=== PATIENT | female | born 1970 | race Caucasian/White ===

== ENCOUNTER 2016-11-29 07:53 | Emergency (ER) | payer OTHER ==
[~2016-11-29] VITALS: Ht 154.9 cm; Wt 74.8 kg
[~2016-11-29 07:53] MED LIST: NORCO 5-325 TA1 EACH PO
== END 2016-11-29 08:04 | disposition home or self-care (01) ==
LOC: ED 07:53
DX: Z00.8 Encounter for other general examination (principal)

== ENCOUNTER 2017-08-11 07:14 | Emergency (ER) | payer BC, OTHER ==
[~2017-08-11] VITALS: Ht 154.9 cm; Wt 74.8 kg
--- OUTSIDE RECORDS SUMMARY | ~2017-08-11 | XMS ---
Demographics + + + | Address | [address] | | | [address] | | | [place] [address] | + + + | Preferred Language | Unknown | + + + | Marital Status | Unknown | + + + | Quaker Affiliation | Unknown | + + + | Race | Unknown | + + + | Ethnic Group | Unknown | + + + Author + + + | Author | [facility] | + + + | Organization | [facility] | + + + | Address | [address] | | | [place] [address] | + + + | Phone | [phone] | + + + Care Team Providers + + + + | Care Superintendent [employer] Name | Role | Phone | + + + + Unavailable | Unavailable | + + + + PROBLEMS +---------+ + + +--------+ + + | Type | Condition | ICD9-CM | [id number] | Onset | Condition | SNOMED | | | | Code | Code | Dates | Status | Code | +---------+ + + +--------+ + + | Problem | Thoracic | 724.1 | | | Active | [id number] | | | spine pain | | | | | | +---------+ + + +--------+ + + | Problem | ROM (right | H66.91 | | | Active | 86667412 | | | otitis | | | | | | | | media) | | | | | | +---------+ + + +--------+ + + | Problem | Brachial | 723.4 | | | Active | 31449840 | | | neuritis | | | | | | | | or | | | | | | | | radiculiti | | | | | | | | s NOS | | | | | | +---------+ + + +--------+ + + | Problem | Genital | | A63.0 | | Active | 597433591 | | | warts | | | | | | +---------+ + + +--------+ + + | Problem | History of | Z85.41 | | | Active | 932270603 | | | cervical | | | | | | | | cancer | | | | | | +---------+ + + +--------+ + + | Problem | Pyelonephr | | N12 | | Active | 08895457 | | | itis | | | | | | +---------+ + + +--------+ + + | Problem | Strep | J02.0 | | | Active | 78806958 | | | pharyngiti | | | | | | | | s | | | | | | +---------+ + + +--------+ + + | Problem | History of | Z87.891 | | | Active | 3949406983 | | | tobacco | | | | | 103 | | | abuse | | | | | | +---------+ + + +--------+ + + | Problem | Right | R10.9 | | | Active | 078510700 | | | flank pain | | | | | | +---------+ + + +--------+ + + | Problem | Fibromyalg | 729.1 | | | Active | 661757632 | | | ia muscle | | | | | | | | pain | | | | | | +---------+ + + +--------+ + + | Problem | Well woman | V72.31 | | | Active | 887389137 | | | exam with | | | | | | | | routine | | | | | | | | gynecologi | | | | | | | | lanette exam | | | | | | +---------+ + + +--------+ + + | Problem | Hyperlipid | 272.4 | | | Active | 07540271 | | | emia | | | | | | +---------+ + + +--------+ + + | Problem | Breast | 611.72 | | | Active | 15048532 | | | lump or | | | | | | | | mass | | | | | | +---------+ + + +--------+ + + | Problem | Pain of | 729.5 | | | Active | 59031247 | | | right heel | | | | | | +---------+ + + +--------+ + + | Problem | Carpal | 354.0 | | | Active | [id number] | | | tunnel | | | | | [address] | | | syndrome | | | | | | | | of right | | | | | | | | wrist | | | | | | +---------+ + + +--------+ + + ALLERGIES + + + + +--------+ | Substance | Reaction | Event Type | Date | Status | + + + + +--------+ | Latex | hives | Drug Allergy | Dec, | Active | + + + + +--------+ | Penicillin | hives | Drug Allergy | Dec, | Active | + + + + +--------+ | Aspirin | GI upset | Drug Allergy | Dec, | Active | + + + + +--------+ | latex | Unknown | Non Drug | Dec, | Active | | | | Allergy | | | + + + + +--------+ | iodine | Unknown | Non Drug | Dec, | Active | | | | Allergy | | | + + + + +--------+ | fish | Unknown | Non Drug | Dec, | Active | | | | Allergy | | | + + + + +--------+ | shell fish | Unknown | Non Drug | Dec, | Active | | | | Allergy | | | + + + + +--------+ SOCIAL HISTORY No smoking Hx information available PLAN OF CARE + +---------+ | Activity | Details | + +---------+ +---+ | | +---+ + + + | Follow Up | prn, 6 Weeks Reason:null | + + + | Future/Pending Procedure | Lesion Destruction (Vulva) by TCA | + + + VITAL SIGNS + + + + | Height | 61 in | 2016-12-14 | + + + + | Weight | 168.0 lbs | 2016-12-14 | + + + + | BMI | 31.74 kg/m2 | 2016-12-14 | + + + + | Heart Rate | 73 /min | 2016-12-14 | + + + + | Blood pressure systolic | 111 mm Hg | 2016-12-14 | + + + + | Blood pressure diastolic | 79 mm Hg | 2016-12-14 | + + + + MEDICATIONS + + +--------+ +--------+ + +--------+ | Medicati | Instruct | Dosage | Frequenc | Start | End Date | Duration | Status | | on | ions | | y | Date | | | | + + +--------+ +--------+ + +--------+ | Ibuprofe | | | | | | | Active | | n | | | | | | | | + + +--------+ +--------+ + +--------+ RESULTS No Results PROCEDURES + + + + + | Procedure | Date Ordered | Related Diagnosis | Body Site | + + + + + | DESTRUCT LESION, | Dec 14, 2016 | | | | 1-14 | | | | + + + + + IMMUNIZATIONS No Known Immunizations"
[2017-08-11] MEDS ORDERED: IBUPROFEN200 M1 PO (07:25)
[2017-08-11] MEDS ORDERED: IBUPROFEN600 MG PO (07:37)
[2017-08-11] MEDS ORDERED: MEDROL4 MG PO (07:37)
== END 2017-08-11 08:52 | disposition home or self-care (01) ==
LOC: ED 07:14
DX: M75.92 Shoulder lesion, unspecified, left shoulder (principal); Z88.0 Allergy status to penicillin; Z88.6 Allergy status to analgesic agent; Z91.040 Latex allergy status; Z88.5 Allergy status to narcotic agent; Z88.1 Allergy status to other antibiotic agents; Z88.8 Allergy status to other drugs, medicaments and biological substances
CPT/HCPCS: 73030; 99283

== ENCOUNTER 2023-08-29 06:25 | Day surgery (SDC) | payer BC ==
[~2023-08-29] VITALS: Ht 154.9 cm; Wt 88.6 kg
[~2023-08-29 06:25] MED LIST changes: +IBUPROFEN200 M1 PO; +IBUPROFEN600 MG PO; +MEDROL4 MG PO; +MIDAZOLAM HCL 5 MG/5 ML VIAL IV PRN; +fentaNYL citrate 100 MCG/2 ML VIAL IV PRN
[2023-08-29 06:38] VITALS: BP 142/85
[2023-08-29] MEDS ORDERED: MIDAZOLAM HCL 5 MG/5 ML VIAL ONE (06:46)
[2023-08-29] MEDS ORDERED: fentaNYL citrate 100 MCG/2 ML VIAL ONE (06:46)
[2023-08-29] MEDS ORDERED: LACTATED RINGER'S 1,000 ML IV SCH (07:00)
[2023-08-29] MEDS ORDERED: LIDOCAINE HCL 1% 5 ML SDV INJ ONE (07:00)
[2023-08-29] MEDS ORDERED: IBLOOD GLUCOSE TEST STRIP 1 EA TEST VI PRN (07:00)
--- NOTE | 2023-08-29 08:47 | NUR ---
08/29/23 0847 Marie Ricketts 0815 PT ARRIVED IN PACU SLEEPY. ABD SOFT. 0830 DR AT BEDSIDE. ALL QUESTIONS ANSWERED. 0845 PT SITTING UP IN BED SIPPING ON JUICE.
[2023-08-29 08:59] VITALS: BP 124/88
--- NOTE | 2023-08-30 14:27 | OR ---
[facility] [address] [place], [place] [address] Signed DATE OF OPERATION: 08/29/2023 SURGEON: Sandeep Mcnamara MD PREOPERATIVE DIAGNOSES: 1. Colon screening. 2. Known perianal condylomata. POSTOPERATIVE DIAGNOSES: 1. Scattered perianal condylomata. 2. Sigmoid diverticulosis. 3. Polyps x2, sigmoid. PROCEDURES: Total colonoscopy to cecum with cold snare polypectomy x1 and cold morcellation polypectomy x1. ANESTHESIA: Intravenous sedation; fentanyl 200 mcg and Versed 8 mg. INDICATION: This 53-year-old white woman is a patient of Dr. María Correa. 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 Stevens a number of years ago. She does note that she has perianal condylomata. She was referred for colon screening on the basis of no prior colon evaluation, though she has no symptoms of bleeding, diarrhea, or constipation. She understands the risk of colonoscopy and wished to proceed with it. These risks include, but are not limited to bleeding, infection, and perforation. FINDINGS: The prep was good. Complete colonoscopy was undertaken to the cecum with full intubation of the cecum. There was scattered diverticula of the sigmoid colon. There were two small polyps of the distal sigmoid, both excised, one with cold snare technique and the other with cold morcellation technique. As regard to condylomata, they were perianal condylomata that were scattered and disparate and not matted and thick. PROCEDURE IN DETAIL: The patient was brought to the endoscopy suite and placed in the lateral decubitus position, given intravenous sedation to the point of slurred speech and nystagmus. Electronically Signed By: SANDEEP MCNAMARA MD 08/30/23 1427 PATIENT NAME: DOROTHY BOWMAN OPERATIVE REPORT DATE OF : 70 REPORT #: [id number] PHYSICIAN: SANDEEP MCNAMARA MD PCP: MARÍA CORREA MD REPORT IS CONFIDENTIAL AND NOT TO BE RELEASED WITHOUT AUTHORIZATION [facility] [address] [place], [place] [address] Signed Digital rectal examination was undertaken confirming anorectal condylomata. Sphincter tone was normal. An Olympus video colonoscope was passed in the rectum and manipulated throughout the colon ultimately intubating the cecum itself. The ileocecal valve and appendiceal orifice was normal. The scope was withdrawn from that point and examination throughout showed no sign of abnormality until diverticuli were noted of the sigmoid colon. Upon withdrawal, the distal sigmoid had two small polyps. Narrow-band imaging confirmed their identity as probably adenomatous. Both were excised, one with cold snare technique and the other with cold morcellation technique. Further withdrawal showed no other abnormality of the rectum. Retroflexed view was normal. Scope was removed and the patient was taken to the recovery room in good condition. CONCLUDING DIAGNOSES: 1. Polyps x2. 2. Sigmoid diverticulosis. 3. Perianal condylomata. PLAN: Would recommend repeat colonoscopy in three years and would recommend consideration for condyloma excision. She will see us back in the office in four weeks and we will review her options in that regard. MD KEL Love/CRISTIANA /[id number] cc: María Correa MD Copies: ~ Electronically Signed By: SANDEEP MCNAMARA MD 08/30/23 1427 PATIENT NAME: DOROTHY BOWMAN OPERATIVE REPORT DATE OF : 70 REPORT #: [id number] PHYSICIAN: SANDEEP MCNAMARA MD PCP: MARÍA CORREA MD REPORT IS CONFIDENTIAL AND NOT TO BE RELEASED WITHOUT AUTHORIZATION
--- NOTE | 2023-08-30 16:59 | PATH ---
[facility] [address] [facility] [place], [place] [address] Signed SPECIMEN(S): A SIGMOID POLYP SPECIMEN(S): B SIGMOID POLYP #2 SPECIMEN SOURCE: A. SIGMOID POLYP B. SIGMOID POLYP #2 CLINICAL HISTORY: Pre-op: Screening colonoscopy. Post-op: Polyps x2 and diverticulosis. FINAL PATHOLOGIC DIAGNOSIS: A. Sigmoid polyp: - Hyperplastic polyp (multiple fragments). B. Sigmoid polyp #2: - Hyperplastic polyp (multiple fragments). DemiVR:liam MICROSCOPIC EXAMINATION: Histologic sections of all submitted blocks are examined by light microscopy. These findings, together with the gross examination, support the pathologic diagnosis. GROSS DESCRIPTION: A. The specimen, labeled and designated "Ross, sigmoid polyp," is received in formalin and consists of multiple vincent soft tissue fragments, 0.1 to 0.6 cm. Entirely submitted in (A1). B. The specimen, labeled and designated "Ross, sigmoid polyp #2," is received in formalin and consists of four vincent soft tissue fragments, ranging from 0.2 to 0.4 cm. Entirely submitted in (B1). VB (under the direct supervision of a pathologist) The Gross Description was prepared using a voice recognition system. The report was reviewed for accuracy; however, sound-alike word errors, addition and/or deletions may occur. If there is any question about this report, please contact Client Services. PERFORMING LABORATORY: Technical component was performed by [facility], [address] [place] [id number] (CLIA# [id number]). Professional interpretation was performed by [facility], [address] [place] [address], [place] [address] (CLIA#: [id number]). PATIENT NAME: DOROTHY BOWMAN PATHOLOGY DATE OF : 70 REPORT #: [id number] PHYSICIAN: [facility] PCP: GARRY COCHRAN MD REPORT IS CONFIDENTIAL AND NOT TO BE RELEASED WITHOUT AUTHORIZATION [address] [address] Signed Diagnostician: David Fay MD Pathologist Electronically Signed 08/30/2023 Copies: ~ PATIENT NAME: DOROTHY BOWMAN PATHOLOGY DATE OF : 70 REPORT #: [id number] PHYSICIAN: [facility] PCP: GARRY COCHRAN MD REPORT IS CONFIDENTIAL AND NOT TO BE RELEASED WITHOUT AUTHORIZATION
== END 2023-08-29 09:08 | disposition home or self-care (01) ==
LOC: OPS 06:25 → DS 06:25 → OPS 07:30
PROVIDERS: ATTEND Surgery
PROC: 0DBN8ZX Excision of Sigmoid Colon, Via Natural or Artificial Opening Endoscopic, Diagnostic (ICD-10-PCS; principal; 2023-08-29 07:30)
DX: Z12.11 Encounter for screening for malignant neoplasm of colon (principal); K63.5 Polyp of colon; K57.30 Diverticulosis of large intestine without perforation or abscess without bleeding; A63.0 Anogenital (venereal) warts; Z90.711 Acquired absence of uterus with remaining cervical stump; Z91.040 Latex allergy status; Z88.0 Allergy status to penicillin; Z91.013 Allergy to seafood; Z87.891 Personal history of nicotine dependence
CPT/HCPCS: J2250; J3010; J7121

== ENCOUNTER 2024-08-31 20:50 | Emergency (ER) | payer OTHER, BC ==
[~2024-08-31] VITALS: Ht 154.9 cm; Wt 81.4 kg
[~2024-08-31 20:50] MED LIST changes: -MIDAZOLAM HCL 5 MG/5 ML VIAL IV PRN; -fentaNYL citrate 100 MCG/2 ML VIAL IV PRN
[2024-08-31] MEDS ORDERED: MORPHINE SULFATE 4 MG/ML VIAL IV ONE (21:30)
[2024-08-31 22:05] LABS: BASOPHILS 0.4 % (0.1-1.2); EOSINOPHILS 1.2 % (0.7-5.8); HEMATOCRIT 40.6 % (34.1-44.9); HEMOGLOBIN 13.2 g/dL (11.2-15.7); LYMPHOCYTES 41.4 % (19.3-51.7); MCHC 32.5 g/dL (32.2-35.5); MCV 92.3 fL (79.4-94.8); MONOCYTES 4.5 % (4.7-12.5); NEUTROPHILS 52.3 % (34.0-71.1); PLATELET COUNT 192 K/uL (182-369)
[2024-08-31 22:17] LABS: ALBUMIN 3.8 g/dL (3.4-5.0); ANION GAP 13.4 (7-21); BILIRUBIN, TOTAL 0.4 mg/dL (0.2-1.0); BUN/CREATININE RATIO 17.5 (6.0-28.6); CALCIUM 9.2 mg/dL (8.5-10.1); CREATININE, SERUM 0.8 mg/dL (0.55-1.02); POTASSIUM 3.4 mmol/L (3.5-5.1); PROTEIN, TOTAL 7.6 g/dL (6.4-8.2)
[2024-09-01] MEDS ORDERED: HYDROCODON-ACE1 EA10 PO (00:32)
[2024-09-01 00:54] VITALS: BP 135/83
== END 2024-09-01 01:00 | disposition home or self-care (01) ==
LOC: ED 20:50
PROVIDERS: Family Medicine
DX: R07.89 Other chest pain (principal); E78.00 Pure hypercholesterolemia, unspecified; Z88.0 Allergy status to penicillin; Z88.6 Allergy status to analgesic agent; Z91.040 Latex allergy status; Z88.5 Allergy status to narcotic agent; Z88.1 Allergy status to other antibiotic agents; Z88.8 Allergy status to other drugs, medicaments and biological substances
CPT/HCPCS: 36415; 71250; 80053; 85025; 96374; 99284-25; J2270